=== PATIENT | female | born 1970 | race American Indian/Alaskan Native ===

== ENCOUNTER 2022-01-01 07:04 | Day surgery (SDC) | payer MEDICARE ==
[2021-12-28 11:58] LABS: Basophils % (Auto) 0.7 % (0.0-1.8); Eosinophils # (Auto) 0.3 K/mm3 (0.0-0.4); Hemoglobin 13.1 gm/dl (10.1-14.3); Lymphocytes % (Auto) 35.6 % (13.4-35.0); Mean Corpuscular HGB Conc 33 % (30-34); Monocytes # (Auto) 0.5 K/mm3 (0.0-0.8); Monocytes % (Auto) 9.8 % (0.0-7.3); Platelet Count 166 K/mm3 (140-440); Red Blood Count 5.99 M/mm3 (3.65-5.03); Red Cell Distribution Width 18.9 % (13.2-15.2)
[2021-12-28 11:59] LABS: Mean Corpuscular Volume 67 fl (79-97)
[2021-12-28 12:08] LABS: Blood Urea Nitrogen 10 mg/dL (7-17); Calcium 9.3 mg/dL (8.4-10.2); Hemolysis Index 0
[2021-12-28 12:13] LABS: BUN/Creatinine Ratio 17
[~2022-01-01 07:04] MED LIST: ACETAMINOPHEN 500 MG TAB PO SCH; CELECOXIB 200 MG CAP PO NR; GABAPENTIN 300 MG CAP PO NR; LACTATED RINGERS 1,000 ML IV SCH; MIDAZOLAM 2 MG/2 ML INJ IV NR
[2022-01-01] MEDS ORDERED: BUPIVACAINE-EPINEPHRINE/PF 0.5%-1:200,000 (30 ML) VIAL INFILTRATI ONE (07:12)
[2022-01-01] MEDS ORDERED: EPINEPHrine 30 MG/30 ML INJ IV ONE (07:13)
[2022-01-01] MEDS ORDERED: HYDROmorphone 1 MG/1 ML INJ ONE (07:21)
[2022-01-01] MEDS ORDERED: LIDOCAINE MPF (2%) 20 MG/1 ML VIAL 5 ML ONE (07:21)
[2022-01-01] MEDS ORDERED: ONDANSETRON 4 MG/2 ML INJ ONE (07:21)
[2022-01-01] MEDS ORDERED: dexAMETHasone 20 MG/5 ML VIAL ONE (07:21)
[2022-01-01] MEDS ORDERED: ePHEDrine SULFATE 50 MG/1 ML INJ ONE (07:22)
[2022-01-01] MEDS ORDERED: propofoL 200 MG/20 ML VIAL IV ONE (07:22)
--- NOTE | 2022-01-01 07:36 | Anesthesia Consultation ---
Anesthesia Consult and Med Hx Date of service: 01/01/22 - Airway Anesthetic Teeth Evaluation: Good, Caps (3 lake caps) ROM Head & Neck: Adequate Mental/Hyoid Distance: Adequate Mallampati Class: Class III Intubation Access Assessment: Possibly Difficult - Pre-Operative Health Status ASA Pre-Surgery Classification: ASA3 Proposed Anesthetic Plan: General - Pulmonary Hx Smoking: Yes (1 PPD ) Hx Asthma: Yes (USES INHALER) Hx Pneumonia: Yes (2012) Hx Sleep Apnea: No (CALIN PRE SCREEN LOW RISK) - Cardiovascular System Hx Hypertension: Yes - Central Nervous System Hx Back Pain: Yes Hx Psychiatric Problems: Yes (anxiety/depression, bipolar, schizophrenia) - Endocrine Hx Non-Insulin Dependent Diabetes: Yes - Hematic Hx Anemia: Yes Hx Sickle Cell Disease: Yes (TRAIT) - Other Systems Hx Cancer: No Hx Obesity: Yes (morbid obesity)
[2022-01-01] MEDS ORDERED: INSULIN LISPRO 100 UNIT/ML SUB-Q ONE ×2 (07:37→09:00)
--- NOTE | 2022-01-01 07:37 | Anesthesia Day of Surgery ---
Anesthesia Day of Surgery - Day of Surgery Patient Examined: Yes Patient H&P Reviewed: Yes Patient is NPO: Yes
[2022-01-01] MEDS ORDERED: MIDAZOLAM 2 MG/2 ML INJ ONE (07:57)
[2022-01-01] MEDS ORDERED: FAMOTIDINE 20 MG/2 ML INJ IV SCH (08:00)
[2022-01-01] MEDS ORDERED: ceFAZolin/STERILE WATER 2 GM/20 ML SYRINGE IV NR (08:00)
[2022-01-01] MEDS ORDERED: INSULIN REGULAR, HUMAN 100 UNITS/1 ML IV SCH (08:30)
[2022-01-01] MEDS ORDERED: EPINEPHrine/PF 1 MG/1 ML INJ IV ONE (08:40)
[2022-01-01] MEDS ORDERED: SODIUM CHLORIDE 0.9% IRRIG SOLN 3000 ML IR ONE (08:41)
[2022-01-01] MEDS ORDERED: HYDROcodone/ACETAMINOPHEN 5-325 MG TAB PO PRN (09:02)
[2022-01-01] MEDS ORDERED: ONDANSETRON 4 MG/2 ML INJ IV PRN (09:02)
[2022-01-01] MEDS ORDERED: HYDROmorphone 0.5 MG/0.5 ML INJ IV PRN (09:02)
[2022-01-01] MEDS ORDERED: BUPIVACAINE-EPINEPHRINE/PF 0.5%-1:200,000 (10 ML) VIAL INFILTRATI ONE (09:04)
--- NOTE | 2022-01-01 09:22 | Discharge Summary ---
Short Stay Discharge Plan Weight Bearing Status: Weight Bear as Tolerated Diet: regular Wound: change dressing (in 48 hrs) Durable Medical Equipment Needed Upon Discharge: Walker-Standard Follow up with: GONZALEZ HART [Other] - 7 Days RICKY AARON II, MD [Staff Physician] - 14 Days
[2022-01-01] MEDS ORDERED: INSULIN REGULAR, HUMAN 100 UNITS/1 ML IV NR (09:36)
--- NOTE | 2022-01-01 11:46 | XRay Report ---
INTRAOPERATIVE FLUOROSCOPY: The injection INDICATION / CLINICAL INFORMATION: SUBCONDULAR INJECTION. TECHNIQUE: Intraoperative spot images were obtained during the procedure. FINDINGS / IMPRESSION: Please see surgical operative report for detail. Fluoroscopy Time: 18 seconds. Fluoroscopy Images: 2. Signer Name: Aldo Polanco MD Signed: 01/01/2022 11:42 AM Workstation Name: [id number]
--- NOTE | 2022-01-01 12:02 | Operative Report ---
DATE OF SURGERY: 01/01/2022 PREOPERATIVE DIAGNOSES: Left knee medial meniscus tear and insufficiency fracture of the medial tibial plateau. POSTOPERATIVE DIAGNOSIS: Insufficiency fracture of the medial tibial plateau. PROCEDURE PERFORMED: Left knee subchondroplasty. SURGEON: Norm Vasquez II, MD SCREEN TENDER: None. ANESTHESIA: General. COMPLICATIONS: None. DRAINS: None. SPECIMENS: None. TOURNIQUET TIME: 37 minutes. PREOPERATIVE MEDICATIONS: Ancef 2 grams administered 30 minutes prior to skin incision. INTRAOPERATIVE MEDICATIONS: 0.25% Marcaine plain, 20 mL. EXAMINATION UNDER ANESTHESIA: Full range of motion. No instability. 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 ADDITIONAL PROCEDURE PERFORMED: Chondroplasty of the patella. INDICATIONS: The patient is a 51-year-old female who has been having refractory pain with ambulating. Evaluation workup was suggestive of bony edema and insufficiency fracture of the medial tibial plateau as well as concern for possible medial meniscus tear. Recommended the patient to undergo surgical management. Risks, benefits and limitations of surgery were discussed with the patient including bleeding, infection, injury to nerves and blood vessels, need for reoperation. The patient appeared to understand the risks and consented to undergo surgery. TECHNIQUE: In the preop holding area, site was marked with surgical marking pen. Extremity was prepped and draped in sterile fashion in a supine position. Standard anteromedial and anterolateral portals were placed and diagnostic arthroscopy was performed. The patellofemoral joint was noted to have some grade 2 chondromalacia. The medial and lateral meniscus appeared to be intact with no signs or evidence of any tearing. The articular cartilage appeared to be relatively well maintained. There was some partial-thickness tearing of the ACL. Using an oscillating shaver, the meniscus was debrided. An Arthrocare wand was used to perform a chondroplasty of the patella. The arthroscope was then removed. Using C-arm visualization, a guidewire was placed into the region of the tibial bony edema. The wire was placed in position and then inserted 5 mL of subchondroplasty filling material from [employer]. We allowed the cement to harden and placed the scope back into the joint to visualize for any intra-articular crystals, for which there were none. The arthroscope was then removed. Incision was closed with 3-0 nylon. Sterile dressing was applied. The patient was awakened and taken to recovery in stable condition. POSTOPERATIVE PLAN: The patient can be weightbearing as tolerated. We will make sure the patient has crutches. We told her she could also use a walker. She will come back and we will see her for a followup visit 2 weeks postop. TID: [id number] RECEIPT: [id number] DELMA/LEONARD/AMRITA/KARINA
--- NOTE | 2022-01-01 12:56 | Post Anesthesia Evaluation ---
- Post Anesthesia Evaluation Patient Participated: Yes Airway Patent: Yes Stable Respiratory Function: Yes Nausea/Vomiting: No Temp > 96.8F: Yes Pain Manageable: Yes Adequeate Hydration: Yes Anesthesia Complications: No Other Comments: Patient complained of hoarseness and sore throat in PACU. Reassurance provided. Later complained of intermittent left breast pain described as "tight." EKG NSR, resolved with out intervention. Ambulated/voided without difficulty and using incentive spirometry as instructed prior to d/c.
--- NOTE | 2022-01-01 17:05 | Electrocardiograph Report ---
[facility] Test Date: 2022-01-01 Test Time: 11:24:14 Pat Name: LUCIEN MURGUIA Department: Room: Gender: F Orderly: AILYN : 1970 Requested By: NARINDER ALICEA Order Number: [id number] Reading MD: Charly Sorto Measurements Intervals [place] Rate: 73 P: 49 TX: 132 QRS: 61 QRSD: 79 T: 36 QT: 363 QTc: 400 Interpretive Statements Sinus rhythm No previous ECG available for comparison Electronically Signed On 01-01-2022 17:04:54 EDT by Charly Sorto
[2022-01-01 23:56] VITALS: BP 141/90
== END 2022-01-01 12:30 | disposition home or self-care (01) ==
LOC: OR 07:04
PROVIDERS: ATTEND Orthopaedic Surgery Sports Medicine
DX: S83.242A Other tear of medial meniscus, current injury, left knee, initial encounter (principal); M13.862 Other specified arthritis, left knee; M22.42 Chondromalacia patellae, left knee; F17.210 Nicotine dependence, cigarettes, uncomplicated; I10 Essential (primary) hypertension; J45.909 Unspecified asthma, uncomplicated; K21.9 Gastro-esophageal reflux disease without esophagitis; E66.9 Obesity, unspecified; E11.9 Type 2 diabetes mellitus without complications; F41.9 Anxiety disorder, unspecified; F31.9 Bipolar disorder, unspecified; D64.9 Anemia, unspecified; Z79.899 Other long term (current) drug therapy; Z79.84 Long term (current) use of oral hypoglycemic drugs; Z20.822 Contact with and (suspected) exposure to COVID-19; Z68.34 Body mass index [BMI] 34.0-34.9, adult; Z87.440 Personal history of urinary (tract) infections; Z98.890 Other specified postprocedural states; X58.XXXA Exposure to other specified factors, initial encounter; Y93.89 Activity, other specified; Y92.89 Other specified places as the place of occurrence of the external cause; Y99.8 Other external cause status
CPT/HCPCS: 29881; 36415; 73560; 80048; 82962; 85025; 93005; J0171; J0690; J1100; J1170; J2250; J2405; J2704; J3490; J7120; U0003; Q9967; J1815